=== PATIENT | male | born 1975 | race Caucasian/White ===

== ENCOUNTER 2023-11-05 09:49 | Day surgery (SDC) | payer BC ==
[~2023-11-05] VITALS: Ht 185.4 cm; Wt 114.6 kg
[~2023-11-05 09:49] MED LIST: Famotidine 20 MG TAB PO SCH; LR 1,000 ML IV SCH; Metoclopramide 10 MG TAB PO SCH; NS 1,000 ML IV SCH
[2023-11-05] MEDS ORDERED: ELIQUIS 5MG PO (11:03)
[2023-11-05] MEDS ORDERED: NORVASC 10MG10 MG PO (11:03)
[2023-11-05] MEDS ORDERED: PRILOTC PO (11:04)
[2023-11-05] MEDS ORDERED: ZYLOPRIM 300MG300 MG PO (11:04)
[2023-11-05] MEDS ORDERED: ALL DAY ALLERGY10 M3 PO (11:05)
[2023-11-05] MEDS ORDERED: TUMS ULTRA ST1000 MG PO (11:06)
[2023-11-05 11:30] LABS: CREATININE, serum 6.1 mg/dL (0.72-1.25); POTASSIUM 4.6 mmol/L (3.5-4.5)
[2023-11-05] MEDS ORDERED: fentaNYL 50 MCG/ML 2 ML VIAL ONE ×2 (11:42→12:50)
[2023-11-05] MEDS ORDERED: Lidocaine PF 2% (20 MG/ML) 5 ML VIAL ONE (11:42)
[2023-11-05] MEDS ORDERED: diphenhydrAMINE 50 MG/ML 1 ML VIAL ONE (11:43)
[2023-11-05] MEDS ORDERED: dexAMETHasone 10 MG/ML VIAL ONE (11:43)
[2023-11-05] MEDS ORDERED: Topical Skin Adhesive 1 EACH (1 ML) TOP ONE (12:48)
[2023-11-05] MEDS ORDERED: droPERidol 2.5 MG/ML 2 ML VIAL IV PRN (13:00)
[2023-11-05] MEDS ORDERED: Meperidine 50 MG/ML 1 ML VIAL IV PRN (13:00)
[2023-11-05] MEDS ORDERED: Ondansetron 4 MG/2 ML VIAL IV PRN ×2 (13:00→13:30)
[2023-11-05] MEDS ORDERED: fentaNYL 50 MCG/ML 2 ML VIAL IV PRN (13:00)
[2023-11-05 13:04] VITALS: BP 144/96; PULSE 63; TEMP 97.6
[2023-11-05] MEDS ORDERED: Ondansetron 4 MG/2 ML VIAL ONE (13:05)
[2023-11-05] MEDS ORDERED: NORCO 325 MG-51 TAB PO (13:18)
[2023-11-05] MEDS ORDERED: Acetaminophen 325 MG TAB PO PRN (13:30)
[2023-11-05 14:00] VITALS: BP 139/82; PULSE 66; TEMP 97.2
[2023-11-05 14:15] VITALS: BP 136/89; PULSE 62
[2023-11-05 14:30] VITALS: BP 133/80; PULSE 64
--- NOTE | 2023-11-05 14:40 | NUR ---
1400 RETURNS TO ROOM 1 PER CART. AWAKE, ALERT. HOB ELEVATED 60 DEGREES. RESP UNLABORED. ABD SOFT. UMBILICAL AREA INCISION INTACT. NO REDNESS OR DRAINAGE OBSERVED. DENIES DISCOMFORT. VITAL SIGNS OBTAINED. CALL LIGHT AT SIDE. SIGNIFICANT OTHER IN ROOM 1415 TOLERATES PO JUICE WITHOUT NAUSEA 1425 DISCHARGE INSTRUCTIONS REVIEWED. PATIENT AND SIGNIFICANT OTHER VERBALIZE UNDERSTANDING. COPY PROVIDED IN DISCHARGE FOLDER 1435 SITS ON EDGE OF CART. DRESSES SELF. REPORTS MILD DISCOMFORT
== END 2023-11-05 14:40 | disposition home or self-care (01) ==
LOC: SDCO 09:49
PROVIDERS: Nurse Anesthetist, Certified Registered
DX: K42.9 Umbilical hernia without obstruction or gangrene (principal); I12.0 Hypertensive chronic kidney disease with stage 5 chronic kidney disease or end stage renal disease; N18.4 Chronic kidney disease, stage 4 (severe); Z79.01 Long term (current) use of anticoagulants; Z86.718 Personal history of other venous thrombosis and embolism; Z87.891 Personal history of nicotine dependence
CPT/HCPCS: C1781; J0690; J1100; J1200; J2405; J2704; J3010; J7030

== ENCOUNTER 2024-06-17 09:19 | Day surgery (SDC) | payer BC ==
[~2024-06-17] VITALS: Ht 188 cm; Wt 114.8 kg
[~2024-06-17 09:19] MED LIST changes: +ALL DAY ALLERGY10 M3 PO; +ELIQUIS 5MG PO; -Famotidine 20 MG TAB PO SCH; -LR 1,000 ML IV SCH; -Metoclopramide 10 MG TAB PO SCH; +NORCO 325 MG-51 TAB PO; +NORVASC 10MG10 MG PO; +PRILOTC PO; +TUMS ULTRA ST1000 MG PO; +ZYLOPRIM 300MG300 MG PO
[2024-06-17] MEDS ORDERED: PRIL40 PO (10:18)
[2024-06-17] MEDS ORDERED: NATURAL E400 IU PO (10:19)
[2024-06-17 10:33] LABS: CALCIUM 9.5 mg/dL (8.4-10.2); CREATININE, serum 8.38 mg/dL (0.72-1.25); POTASSIUM 5.4 mEq/L (3.5-4.5)
--- NOTE | 2024-06-17 10:40 | NUR ---
PATIENT ADMITTED TO ROOM 2 AMBULATORY AND IS ALERT AND ORIENTED X3. VOICED UNDERSTANDING OF SURGERY AND CONSENT SIGNED. FRIEND KOFI IN THE ROOM AND HAS SILVER CHAIN, AYANNA. IVF INFUSING. CALL LIGHT IN REACH.
[2024-06-17 10:51] VITALS: BP 157/98; PULSE 67; TEMP 98.6
[2024-06-17] MEDS ORDERED: NS 10 ML IV ONE (10:51)
[2024-06-17] MEDS ORDERED: dexAMETHasone 10 MG/ML VIAL ONE (10:51)
[2024-06-17] MEDS ORDERED: Ondansetron 4 MG/2 ML VIAL ONE (10:51)
[2024-06-17] MEDS ORDERED: Lidocaine PF 2% (20 MG/ML) 5 ML VIAL ONE (10:51)
[2024-06-17] MEDS ORDERED: fentaNYL 50 MCG/ML 2 ML VIAL ONE (10:51)
[2024-06-17] MEDS ORDERED: Rocuronium 50 MG/5 ML Multi-Dose VIAL ONE (10:51)
[2024-06-17] MEDS ORDERED: Topical Skin Adhesive 1 EACH (1 ML) TOP ONE (11:33)
[2024-06-17] MEDS ORDERED: Acetaminophen 325 MG TAB PO PRN (12:15)
[2024-06-17] MEDS ORDERED: Ondansetron 4 MG/2 ML VIAL IV PRN ×2 (12:15→12:30)
[2024-06-17] MEDS ORDERED: hydrALAZINE 20 MG/ML 1 ML VIAL IV PRN (12:30)
[2024-06-17] MEDS ORDERED: fentaNYL 50 MCG/ML 1 ML SYRINGE/VIAL [PACU/SDC ONLY] IV PRN (12:30)
[2024-06-17] MEDS ORDERED: droPERidol 2.5 MG/ML 2 ML VIAL IV PRN (12:30)
[2024-06-17] MEDS ORDERED: HYDROmorphone 1 MG/1 ML SYRINGE [PACU/SDC ONLY] IV PRN (12:30)
[2024-06-17 12:42] VITALS: BP 137/89; PULSE 65; TEMP 97
--- NOTE | 2024-06-17 12:42 | NUR ---
The patient arrived back to [facility] from the recovery room at this time. The patient appears alert and oriented and denies any pain or nausea at this time. The patient agrees to try some water but denies wanting anything to eat at this time. Post operative vital signs were started at this time. The patient has 3 lap sites that are covered with surgical glue and appear clean, dry and intact. The catheter site is covered with a gauze and a tegaderm and appears clean, dry and intact. The patient's significant other, Lianna, is present at his bedside. The patient denies any further needs at this time.
[2024-06-17 12:57] VITALS: BP 150/92; PULSE 66
--- NOTE | 2024-06-17 12:57 | NUR ---
The patient appears to be tolerating the water well and continues to deny wanting anything to eat. Post operative vital signs appear stable to baseline. Lianna remains at his bedside.
[2024-06-17 13:15] VITALS: BP 141/92; PULSE 66
--- NOTE | 2024-06-17 13:15 | NUR ---
Discharge instructions were reviewed with the patient and his significant other. They both verbalized understanding and questions were answered at this time. The patient requests to try some applesauce at this time.
[2024-06-17 13:35] VITALS: BP 144/86; PULSE 70
[2024-06-17 13:55] VITALS: BP 140/89; PULSE 62; TEMP 97.6
--- NOTE | 2024-06-17 14:00 | NUR ---
The patient appeared to tolerate the muffin well. His IV to his right wrist was removed and a pressure dressing was applied to the site. The nurse instructed the patient to get dressed and notify the staff when he is ready to be escorted out.
--- NOTE | 2024-06-17 14:20 | NUR ---
The patient was escorted out to a private vehicle by DAIJA Toney. The patient's belongings and discharge paperwork were sent with him. The patient's significant other, Lianna, realized she had left her purse in the waiting room, it had been turned into security and was returned to her prior to discharge.
== END 2024-06-17 14:20 ==
LOC: SDCO 09:19
PROVIDERS: Nurse Anesthetist, Certified Registered
DX: I12.0 Hypertensive chronic kidney disease with stage 5 chronic kidney disease or end stage renal disease (principal); N18.6 End stage renal disease; Q61.3 Polycystic kidney, unspecified; K21.9 Gastro-esophageal reflux disease without esophagitis; Z79.899 Other long term (current) drug therapy; Z87.891 Personal history of nicotine dependence; Z79.01 Long term (current) use of anticoagulants; Z86.711 Personal history of pulmonary embolism
CPT/HCPCS: C1750; J0690; J1100; J2405; J2704; J3010; J7030